=== PATIENT | female | born 1995 | race Caucasian/White ===

== ENCOUNTER 2017-06-30 19:59 | Emergency (ER) | payer OTHER ==
[~2017-06-30] VITALS: Ht 167.6 cm; Wt 55.2 kg
[2017-06-30 20:03] VITALS: BP 121/84
[2017-06-30] MEDS ORDERED: DIPH,PERTUSS(ACELL),TET VAC/PF 0.5 ML IM-VACC ONE ×2 (20:22→20:30)
[2017-06-30] MEDS ORDERED: LIDOCAINE-MPF 1%, 5ML ONE (21:08)
[2017-06-30] MEDS ORDERED: BACITRACIN ZINC OINT 500U/GM, 0.9 GM ONE (21:22)
[2017-06-30] MEDS ORDERED: LIDOCAINE-MPF 1%, 5ML INFIL ONE (21:30)
== END 2017-06-30 21:39 | disposition home or self-care (01) ==
LOC: ED 21:20
DX: S61.217A Laceration without foreign body of left little finger without damage to nail, initial encounter (principal); Y93.89 Activity, other specified; Y92.89 Other specified places as the place of occurrence of the external cause; Y99.8 Other external cause status; X58.XXXA Exposure to other specified factors, initial encounter
CPT/HCPCS: 12001; 90715; 96372; 99283

== ENCOUNTER 2018-03-18 17:02 | Emergency (ER) | payer OTHER ==
[~2018-03-18] VITALS: Ht 167.6 cm; Wt 54.4 kg
[2018-03-18 17:21] VITALS: BP 129/83
[2018-03-18] MEDS ORDERED: BACITRACIN ZINC OINT 500U/GM, 0.9 GM ONE (17:43)
== END 2018-03-18 17:58 | disposition home or self-care (01) ==
LOC: ED 17:55
DX: S60.470A Other superficial bite of right index finger, initial encounter (principal); S60.472A Other superficial bite of right middle finger, initial encounter; W55.01XA Bitten by cat, initial encounter; Y93.89 Activity, other specified; Y92.009 Unspecified place in unspecified non-institutional (private) residence as the place of occurrence of the external cause; Y99.8 Other external cause status
CPT/HCPCS: 99283